=== PATIENT | male | born 1995 | race Hispanic/Latino ===

== ENCOUNTER 2023-11-29 16:31 | Emergency (ER) | payer SELFPAY ==
[~2023-11-29] VITALS: Ht 180.3 cm; Wt 97.5 kg
[2023-11-29 16:50] VITALS: PULSE 95; RESP 18; TEMP 98.2
[2023-11-29] MEDS ORDERED: KETOROLAC TROME10 MG PO (17:43)
[2023-11-29] MEDS ORDERED: CYCLOBENZAPRINE5 MG PO (17:44)
[2023-11-29] MEDS ORDERED: PREDNISONE20 MG PO (17:45)
[2023-11-29] MEDS: KETOROLAC TROMETHAMINE 30 MG/ML VIAL IM STA (17:47)
[2023-11-29] MEDS: TRAMADOL HCL 50 MG TAB PO ONE (17:47)
[2023-11-29 18:22] VITALS: BP 129/62; PULSE 78; RESP 18; TEMP 98.3; O2SAT 99
== END 2023-11-29 18:07 | disposition home or self-care (01) ==
LOC: FSED 16:44
DX: M51.26 Other intervertebral disc displacement, lumbar region (principal); M48.061 Spinal stenosis, lumbar region without neurogenic claudication
CPT/HCPCS: 72131; 99283; J1885